=== PATIENT | male | born 1990 | race African-American/Black ===

== ENCOUNTER 2022-06-30 16:24 | Emergency (ER) | payer SELFPAY ==
[~2022-06-30] VITALS: Ht 185.4 cm; Wt 105.2 kg
--- NOTE | 2022-06-30 16:45 | NUR ---
C/O 5TH FINGER PAIN POSSIBLE DISLOCATION TRYING TO DUNK A BASKETBALL
--- NOTE | 2022-06-30 17:03 | NUR ---
ICE COMPRESS ORDERED
[2022-06-30] MEDS ORDERED: IBUPROFEN 600 MG TABLET ONE (17:07)
[2022-06-30] MEDS: IBUPROFEN 600 MG TABLET PO ONE (17:08)
--- NOTE | 2022-06-30 17:12 | NUR ---
IMPERSONATOR CHARACTER AT BEDSIDE
--- NOTE | 2022-06-30 17:30 | NUR ---
FINGER SPLINT PLACED BY TECH
[2022-06-30 17:48] VITALS: BP 130/84
== END 2022-06-30 17:48 | disposition home or self-care (01) ==
LOC: ER 16:30
DX: S63.297A Dislocation of distal interphalangeal joint of left little finger, initial encounter (principal); W21.05XA Struck by basketball, initial encounter; Y93.67 Activity, basketball; Y92.310 Basketball court as the place of occurrence of the external cause; Y99.8 Other external cause status
CPT/HCPCS: 73140-TC